=== PATIENT | female | born 1995 | race African-American/Black ===

== ENCOUNTER 2017-02-09 15:32 | Emergency (ER) | payer MEDICAID ==
[~2017-02-09] VITALS: Ht 170.2 cm; Wt 77.0 kg
[2017-02-09 15:34] VITALS: BP 122/58; PULSE 66; RESP 17; TEMP 98.5; O2SAT 100
--- NOTE | 2017-02-09 15:55 | PD ---
Physical Exam Time Seen by Provider: 15:49 Narrative 21-year-old female presents to the emergency department with pelvic cramping and pain for the last 3-4 weeks. LMP November. Had positive test. Took pills 3-4 weeks ago and never had any vaginal bleeding, weakness or discharge. Has had continued abdominal cramping. Says every time she eats she vomits. Was told to come to the emergency room for evaluation. Says she wants to know if she is still because her birthday is in a few days and she wants to drink alcohol. Patient seen in triage. Vital signs reviewed. Patient awaiting bed placement. Data Data Last Documented VS Vital Signs Date Time Temp Pulse Resp B/P (MAP) Pulse Ox O2 Delivery O2 Flow Rate FiO2 02/09/17 15:34 98.5 66 17 122/58 (79) 100 MDM Supervised Visit with SACHI: Martha Dixon Feb 09, 2017 15:55
== END 2017-02-09 19:25 | disposition left against medical advice (07) ==
LOC: NED 15:32
DX: R10.2 Pelvic and perineal pain (principal)
CPT/HCPCS: 84703; 99282